=== PATIENT | female | born 1985 ===

== ENCOUNTER 2017-09-16 12:04 | Day surgery (SDC) | payer OTHER ==
[~2017-09-16 12:04] MED LIST: MAXIMUM DAILY1 EACH PO
== END 2017-09-16 18:50 | disposition home or self-care (01) ==
LOC: CIR.AMB 12:04
DX: O02.1 Missed abortion (principal); Z3A.01 Less than 8 weeks gestation of pregnancy

== ENCOUNTER 2018-03-26 20:44 | Emergency (ER) | payer OTHER ==
[~2018-03-26] VITALS: Ht 167.6 cm; Wt 56.2 kg
[2018-03-27] MEDS ORDERED: ZOFRAN ODT4 MG PO (04:10)
[2018-03-27] MEDS ORDERED: PEPCID40 MG PO (04:10)
== END 2018-03-27 04:19 ==
LOC: ER 20:44
DX: O21.0 Mild hyperemesis gravidarum (principal); Z34.81 Encounter for supervision of other normal pregnancy, first trimester